=== PATIENT | female | born 1985 | race Caucasian/White ===

== ENCOUNTER → 2016-12-23 | Outpatient (CLI) | payer BC ==
[2016-12-23 13:10] VITALS: BP 148/87; PULSE 99; RESP 16; TEMP 97.8; BMI 69.2
--- NOTE | 2016-12-23 15:54 | P.HPBAR ---
Bariatric H&P - History & Physicial H&P Date: 12/23/16 History & Physicial: Visit/CC: band fill Patient initial contact: Initial weight: 165.108 kg Initial weight in pounds: 364.00 Height: 5 ft 4 in Initial BMI: 62.4 Last weight: Current weight: 182.996 kg Current weight in pounds: 403.00 Current BMI: 69.2 [place] body weight (based on NIH guidelines): 54.431 kg Excess body weight loss: The patient is a 31 year-old F who presents for Bariatric Assessment. The patient presents today for sleeve gastrectomy consultation. She wishes to have her LAP-BAND removed. She wishes to convert to the sleeve gastrectomy. The patient's LAP-BAND was emptied several months ago due to chronic dysphagia and GERD symptoms. The patient LAP-BAND has an inability be adjusted due to the patient having excessive GERD and dysphagia. Past Medical History History of Any Multi-Drug Resistant Organisms: None Reported Smoking Status: Unknown if ever smoked Surgical - Exam Vital Signs Temp Pulse Resp BP 97.8 F 99 16 148/87 12/23/16 13:07 12/23/16 13:07 12/23/16 13:07 12/23/16 13:07 - General well developed, no distress - Eyes PERRL - ENT normal pinna - Neck no masses - Respiratory normal expansion - Cardiovascular Rhythm: regular - Abdomen Abdomen: soft, non tender Bariatric Assessment & Plan Plan: Morbid obesity with BMI 54. Chronic GERD and dysphagia secondary to LAP-BAND. Patient be scheduled for lap band removal. We'll obtain insurance authorization for gastric sleeve surgery. Bariatric Checklist Checklist: Plan: Checklist: EGD: 1. Hiatal hernia: 2. H. Pylori: HgbA1c: Vitamin D: Smoking: Unknown if ever smoked Primary care physician referral: Psychiatry clearance: Cardiology clearance: Sleep study: Diet journal: VTE risk score: VTE risk level: Rehab needs at discharge:
== END | disposition home or self-care (01) ==
LOC: BARWHC3 13:01
PROVIDERS: ATTEND Surgery
DX: Z48.815 Encounter for surgical aftercare following surgery on the digestive system (principal); Z98.84 Bariatric surgery status; E66.01 Morbid (severe) obesity due to excess calories; Z68.43 Body mass index [BMI] 50.0-59.9, adult; K21.9 Gastro-esophageal reflux disease without esophagitis; R13.10 Dysphagia, unspecified
CPT/HCPCS: 99211

== ENCOUNTER 2016-12-25 10:34 | Day surgery (SDC) | payer BC ==
[2016-12-24 14:29] VITALS: BMI 69.1
[2016-12-25 11:10] VITALS: RESP 18; TEMP 97.4
[2016-12-25] MEDS ORDERED: LIDOCAINE 1% 20 ML VIAL (10MG/ML) FOR IV START INTRADERMA ONE (11:30)
[2016-12-25] MEDS ORDERED: LACTATED RINGERS 1,000 ML IV SCH (11:45)
--- NOTE | 2016-12-25 11:52 | P.GSHP ---
History of Present Illness H&P Date: 12/25/16 Chief Complaint: GERD, dysphagia This is a 31-year-old female who presents today for EGD. She has had issues with GERD and dysphagia from her LAP-BAND. She is considering converting to a sleeve gastrectomy. Past Medical History Past Medical History: No Reported History History of Any Multi-Drug Resistant Organisms: None Reported Past Surgical History: Section, Cholecystectomy Additional Past Surgical History / Comment(s): lap band, c-sect x3 Past Anesthesia/Blood Transfusion Reactions: Motion Sickness Past Psychological History: No Psychological Hx Reported Smoking Status: Former smoker Past Alcohol Use History: None Reported Additional Past Alcohol Use History / Comment(s): quit smoking 2010,smoked approx 6-8 yrs <1ppd Past Drug Use History: None Reported - Past Family History Mother Family Medical History: No Reported History Father Family Medical History: Diabetes Mellitus, Hypertension Medications and Allergies Home Medications Medication Instructions Recorded Confirmed Type No Known Home Medications [No 12/24/16 12/24/16 History Known Home Medications] Allergies Allergy/AdvReac Type Severity Reaction Status Date / Time No Known Allergies Allergy Verified 12/24/16 14:22 Surgical - Exam Vital Signs Temp Pulse Resp BP Pulse Ox 97.4 F L 90 18 133/83 97 12/25/16 11:08 12/25/16 11:08 12/25/16 11:08 12/25/16 11:08 12/25/16 11:08 BMI of 70 - General well developed, no distress - Eyes PERRL - ENT normal pinna - Neck no masses - Respiratory normal expansion - Cardiovascular Rhythm: regular - Abdomen Abdomen: soft, non tender Assessment and Plan Plan: RBC, BMI 70. GERD, dysphagia. We'll perform EGD.
[2016-12-25] MEDS ORDERED: LIDOCAINE 1% INJ 10MG/ML (20 ML MDV) ONE (11:53)
[2016-12-25] MEDS ORDERED: PROPOFOL 10 MG/ML 20 ML VIAL IV ONE (11:53)
--- NOTE | 2016-12-25 12:03 | P.OP ---
Date of Procedure: 12/25/16 Preoperative Diagnosis: GERD Postoperative Diagnosis: Antral gastritis Esophagitis Procedure(s) Performed: EGD Anesthesia: MAC Surgeon: Artis Crooks Pathology: other (Antrum, esophagus) Condition: stable Disposition: PACU Description of Procedure: The patient's placed on the endoscopy table in the lateral position. She received IV sedation. The gastroscope some placed oropharynx passed into the esophagus and stomach. Scope was then placed through the pylorus. The first and second portion of the duodenum appeared normal. The scope was then brought back and the antrum this. Mildly inflamed. A biopsies performed. Scope was retroflexed and the remainder some appeared normal. The patient agrees LAP- BAND device this without evidence of inflammation or erosion. The scope was then brought back the distal esophagus in this is mildly inflamed. A biopsies performed. The proximal esophagus appeared normal. Scope was withdrawn for patient.
[2016-12-25 13:04] VITALS: BP 145/92; PULSE 87
== END 2016-12-25 13:10 | disposition home or self-care (01) ==
LOC: ORWHC2ENDO 10:34
PROVIDERS: ATTEND Surgery
DX: K21.0 Gastro-esophageal reflux disease with esophagitis (principal); K29.50 Unspecified chronic gastritis without bleeding; Z98.84 Bariatric surgery status; E66.9 Obesity, unspecified; Z87.891 Personal history of nicotine dependence
CPT/HCPCS: 81025; 88305; 88342; 43239; J2001; J2704

== ENCOUNTER 2017-01-03 06:27 | Day surgery (SDC) | payer BC ==
[2017-01-01 14:27] VITALS: BMI 69.1
[~2017-01-03 06:27] MED LIST: DEXAMETHASONE SOD PHOSPHATE 10 MG/ML 1 ML VIAL IV ONE; HYDROmorphone 1 MG/ML 1 ML SYRINGE IVP PRN; LACTATED RINGERS 1,000 ML IV SCH; MIDAZOLAM 2 MG/2 ML VIAL IV PRN; ONDANSETRON 4 MG/2 ML VIAL IVP ONE; SCOPOLAMINE 1.5MG/72HR PATCH TRANSDERM ONE; ceFAZolin 3 GM in SODIUM CHLORIDE 0.9% 100 ML IVPB ONE
[2017-01-03] MEDS ORDERED: LIDOCAINE 1% 20 ML VIAL (10MG/ML) FOR IV START SQ ONE (06:41)
[2017-01-03] MEDS ORDERED: BUPIVACAIN-EPI 0.25%-1:200,000 30 ML VIAL SQ ONE ×2 (07:24→08:26)
--- NOTE | 2017-01-03 07:52 | P.GSHP ---
History of Present Illness H&P Date: 01/03/17 Chief Complaint: GERD This is a 31-year-old female who's had long-standing problems reflux esophagitis. 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 She presents today for laparoscopic removal of LAP-BAND system. - Constitutional Constitutional: Reports as per HPI Past Medical History Past Medical History: Osteoarthritis (OA) History of Any Multi-Drug Resistant Organisms: None Reported Past Surgical History: Bariatric Surgery, Section, Cholecystectomy Additional Past Surgical History / Comment(s): lap band, c-sect x3 Past Anesthesia/Blood Transfusion Reactions: Motion Sickness Past Psychological History: No Psychological Hx Reported Smoking Status: Former smoker Past Alcohol Use History: None Reported Additional Past Alcohol Use History / Comment(s): quit smoking 2009,smoked approx 6-8 yrs <1ppd Past Drug Use History: None Reported - Past Family History Mother Family Medical History: No Reported History Father Family Medical History: Diabetes Mellitus, Hypertension Medications and Allergies Home Medications Medication Instructions Recorded Confirmed Type No Known Home Medications [No 12/24/16 01/01/17 History Known Home Medications] Allergies Allergy/AdvReac Type Severity Reaction Status Date / Time No Known Allergies Allergy Verified 01/01/17 14:23 Surgical - Exam Vital Signs Temp Pulse Resp BP Pulse Ox 97.9 F 82 16 144/73 97 01/03/17 06:50 01/03/17 06:50 01/03/17 06:50 01/03/17 06:50 01/03/17 06:50 - General well developed, no distress - Eyes PERRL - ENT normal pinna - Neck no masses - Respiratory normal expansion - Cardiovascular Rhythm: regular - Abdomen Abdomen: soft, non tender Assessment and Plan Plan: Morbid obesity with BMI of 69 GERD Prolapse of LAP-BAND. We'll perform laparoscopic removal of LAP-BAND device
[2017-01-03] MEDS ORDERED: HEPARIN SODIUM,PORCINE 5,000 UNIT/ML 1 ML VIAL SQ ONE (07:53)
[2017-01-03] MEDS ORDERED: ceFAZolin 2 GM in SODIUM CHLORIDE 0.9% 100 ML IVPB ONE (07:53)
[2017-01-03] MEDS ORDERED: ROCURONIUM BROMIDE 10 MG/ML 10 ML VIAL IV ONE (08:00)
[2017-01-03] MEDS ORDERED: NEOSTIGMINE 1 MG/ML 10 ML VIAL ONE (08:00)
[2017-01-03] MEDS ORDERED: HYDROmorphone (PF) 1 MG/ML ONE (08:00)
[2017-01-03] MEDS ORDERED: MIDAZOLAM 2 MG/2 ML VIAL ONE (08:00)
[2017-01-03] MEDS ORDERED: SUCCINYLCHOLINE CHLORIDE 100 MG/5 ML SYR IV ONE (08:00)
[2017-01-03] MEDS ORDERED: fentaNYL (PF) 50 MCG/ML 2 ML AMP ONE (08:00)
[2017-01-03] MEDS ORDERED: PROPOFOL 10 MG/ML 20 ML VIAL IV ONE (08:00)
[2017-01-03] MEDS ORDERED: LIDOCAINE 1% INJ 10MG/ML (20 ML MDV) ONE (08:00)
[2017-01-03] MEDS ORDERED: GLYCOPYRROLATE 0.2 MG/ML 2 ML VIAL ONE (08:00)
[2017-01-03] MEDS ORDERED: LACTATED RINGERS 1,000 ML IV ONE (08:33)
--- NOTE | 2017-01-03 09:01 | P.OP ---
Date of Procedure: 01/03/17 Preoperative Diagnosis: GERD Morbid obesity Postoperative Diagnosis: GERD Morbid obesity Procedure(s) Performed: Laparoscopic removal of LAP-BAND system Anesthesia: FLORENTIN Surgeon: Artis Crooks Estimated Blood Loss (ml): 10 Pathology: none sent Condition: stable Disposition: PACU Description of Procedure: Patient's placed the operative table in the supine position. She received general anesthesia. Her abdomen was prepped and draped usual sterile fashion. She was placed in dorsal lithotomy position. The bed was positioned at approximately 30 reverse Trendelenburg. The skin incision sites were anesthetized with 1% local Xylocaine. Using an 11 blade the skin was incised at the LAP-BAND port. And then using blunt and sharp dissection with cautery the LAP-BAND port was dissected free from some taste tissues the PEG tube was then cut and the LAP-BAND port was withdrawn. Next using a 5 mm blade was trocar under direct visitation the perineal cavity was entered at the position of the LAP-BAND port. After adequate insufflation the laparoscope placed back the pleural cavity. Next a 5 mm trocar was placed in the right and left lateral position. And then a 5 mm trocar was placed in the left epigastric position and then the original 5 mm trocar was exchanged for a 15 mm trocar. The adhesions Henry device were lysed using sharp dissection with cautery and then the Henry buckle was exposed. Henry buckle was dissected. The Henry was then undone and then the device was cut next the buckle. LAP-BAND device was then withdrawn from the stomach. There is no evidence of injury stomach. The LAP-BAND device and the cut portion of the device were withdrawn through the 15 mm trocar site. There is no bleeding seen. The trochars withdrawn. The skin was closed interrupted 3-0 Monocryl suture. Dermabond was applied. The patient was sent to recovery in stable condition.
[2017-01-03 09:17] VITALS: TEMP 98
[2017-01-03 09:24] VITALS: RESP 16
[2017-01-03 11:04] VITALS: BP 144/79; PULSE 72
== END 2017-01-03 11:27 | disposition home or self-care (01) ==
LOC: OR 06:27
PROVIDERS: ATTEND Surgery
DX: T85.898A Other specified complication of other internal prosthetic devices, implants and grafts, initial encounter (principal); K21.0 Gastro-esophageal reflux disease with esophagitis; K31.89 Other diseases of stomach and duodenum; E66.01 Morbid (severe) obesity due to excess calories; Z68.44 Body mass index [BMI] 60.0-69.9, adult; Z87.891 Personal history of nicotine dependence
CPT/HCPCS: 81025; 43774; J2250; J1644; J1100; J2710; J0690; J2405; J2001; J3010; J1170; J0330; J2704

== ENCOUNTER → 2017-01-13 | Outpatient (CLI) | payer BC ==
--- NOTE | 2017-01-13 16:22 | P.HPBAR ---
Bariatric H&P - History & Physicial H&P Date: 01/13/17 History & Physicial: Visit/CC: Patient initial contact: Initial weight: 165.108 kg Initial weight in pounds: Height: Initial BMI: Last weight: Current weight: Current weight in pounds: Current BMI: [place] body weight (based on NIH guidelines): Excess body weight loss: The patient is a 31 year-old F who presents for Bariatric Assessment. The patient had her LAP-BAND removed a week ago. Past Medical History Past Medical History: Osteoarthritis (OA) History of Any Multi-Drug Resistant Organisms: None Reported Past Surgical History: Bariatric Surgery, Section, Cholecystectomy Additional Past Surgical History / Comment(s): lap band, c-sect x3 Past Anesthesia/Blood Transfusion Reactions: Motion Sickness Past Psychological History: No Psychological Hx Reported Smoking Status: Former smoker Past Alcohol Use History: None Reported Additional Past Alcohol Use History / Comment(s): quit smoking 2009,smoked approx 6-8 yrs <1ppd Past Drug Use History: None Reported - Past Family History Mother Family Medical History: No Reported History Father Family Medical History: Diabetes Mellitus, Hypertension Surgical - Exam - General well developed, no distress - Eyes PERRL - ENT normal pinna - Neck no masses - Respiratory normal expansion - Cardiovascular Rhythm: regular - Abdomen Abdomen: soft, non tender Bariatric Assessment & Plan Plan: Status post removal LAP-BAND. Patient will be arthritis for sleeve gastrectomy. BMI of 66 Bariatric Checklist Checklist: Plan: Checklist: EGD: 1. Hiatal hernia: 2. H. Pylori: HgbA1c: Vitamin D: Smoking: Former smoker Primary care physician referral: Psychiatry clearance: Cardiology clearance: Sleep study: Diet journal: VTE risk score: VTE risk level: Rehab needs at discharge:
== END | disposition home or self-care (01) ==
LOC: BARWHC3 15:13
PROVIDERS: ATTEND Surgery
DX: Z01.818 Encounter for other preprocedural examination (principal); E66.01 Morbid (severe) obesity due to excess calories; Z68.44 Body mass index [BMI] 60.0-69.9, adult; Z87.891 Personal history of nicotine dependence; Z98.84 Bariatric surgery status
CPT/HCPCS: 99211

== ENCOUNTER → 2017-01-20 | Outpatient (CLI) | payer BC ==
[2017-01-20 14:41] VITALS: BMI 67.3
== END | disposition home or self-care (01) ==
LOC: BARWHC3 09:04
PROVIDERS: ATTEND Surgery
DX: Z71.3 Dietary counseling and surveillance (principal); E66.01 Morbid (severe) obesity due to excess calories; Z68.44 Body mass index [BMI] 60.0-69.9, adult
CPT/HCPCS: 97804

== ENCOUNTER 2017-01-27 07:28 | Inpatient (IN) | payer BC ==
[~2017-01-27 07:28] MED LIST changes: -HYDROmorphone 1 MG/ML 1 ML SYRINGE IVP PRN; -LACTATED RINGERS 1,000 ML IV SCH; -SCOPOLAMINE 1.5MG/72HR PATCH TRANSDERM ONE
[2017-01-27] MEDS ORDERED: LIDOCAINE 1% 20 ML VIAL (10MG/ML) FOR IV START INTRADERMA ONE (08:13)
[2017-01-27] MEDS: LACTATED RINGERS 1,000 ML IV SCH (08:13)
[2017-01-27] MEDS ORDERED: SCOPOLAMINE 1.5MG/72HR PATCH TRANSDERM ONE (08:20)
[2017-01-27] MEDS ORDERED: ACETAMINOPHEN IV (For NPO) 1,000 MG in EMPTY BAG 1 BAG IVPB STA (08:58)
[2017-01-27] MEDS ORDERED: HEPARIN SODIUM,PORCINE 5,000 UNIT/ML 1 ML VIAL SQ STA (08:59)
--- NOTE | 2017-01-27 09:01 | P.GSHP ---
History of Present Illness H&P Date: 01/27/17 Chief Complaint: Morbid obesity This is a 31-year-old female who's had lifetime problems morbid obesity. Her BMI is 66. Patient had a recent removal of her LAP-BAND. She presents today for laparoscopic sleeve gastrectomy. Patient reversed surgery including injury to the stomach liver or spleen. She is also aware of the risk of gastric staple line disruption, bleeding perforation or scarring. - Constitutional Constitutional: Reports as per HPI Past Medical History Past Medical History: GERD/Reflux, Osteoarthritis (OA) History of Any Multi-Drug Resistant Organisms: None Reported Past Surgical History: Bariatric Surgery, Section, Cholecystectomy Additional Past Surgical History / Comment(s): lap band, c-sect x3, lap band removed 2-- Past Anesthesia/Blood Transfusion Reactions: Motion Sickness Past Psychological History: No Psychological Hx Reported Smoking Status: Former smoker Past Alcohol Use History: None Reported Additional Past Alcohol Use History / Comment(s): quit smoking 2009,smoked approx 6-8 yrs <1ppd Past Drug Use History: None Reported - Past Family History Mother Family Medical History: No Reported History Father Family Medical History: Diabetes Mellitus, Hypertension Medications and Allergies Home Medications Medication Instructions Recorded Confirmed Type No Known Home Medications [No 01/22/17 01/27/17 History Known Home Medications] Allergies Allergy/AdvReac Type Severity Reaction Status Date / Time No Known Allergies Allergy Verified 01/27/17 08:00 Surgical - Exam Vital Signs Temp Pulse Resp BP Pulse Ox 98.1 F 87 16 131/71 97 01/27/17 07:58 01/27/17 07:58 01/27/17 07:58 01/27/17 07:58 01/27/17 07:58 - General well developed, no distress - Eyes PERRL - ENT normal pinna - Neck no masses - Respiratory normal expansion - Cardiovascular Rhythm: regular - Abdomen Abdomen: soft, non tender Assessment and Plan Plan: Morbid obesity. We'll perform laparoscopic sleeve gastrectomy.
[2017-01-27] MEDS ORDERED: GLYCOPYRROLATE 0.2 MG/ML 2 ML VIAL ONE (09:32)
[2017-01-27] MEDS ORDERED: SUCCINYLCHOLINE CHLORIDE VIAL 200 MG/10 ML VIAL IV ONE (09:32)
[2017-01-27] MEDS ORDERED: HYDROmorphone (PF) 1 MG/ML ONE (09:32)
[2017-01-27] MEDS ORDERED: fentaNYL (PF) 50 MCG/ML 2 ML AMP ONE (09:32)
[2017-01-27] MEDS ORDERED: MIDAZOLAM 2 MG/2 ML VIAL ONE (09:32)
[2017-01-27] MEDS ORDERED: NEOSTIGMINE 1 MG/ML 10 ML VIAL ONE (09:32)
[2017-01-27] MEDS ORDERED: WATER FOR INJECTION, STERILE 10 ML VIAL IV ONE (09:32)
[2017-01-27] MEDS ORDERED: LIDOCAINE 1% INJ 10MG/ML (20 ML MDV) ONE (09:32)
[2017-01-27] MEDS ORDERED: PROPOFOL 10 MG/ML 20 ML VIAL IV ONE (09:32)
[2017-01-27] MEDS ORDERED: VECURONIUM 10 MG VIAL IV ONE (09:32)
[2017-01-27] MEDS ORDERED: METHYLENE BLUE 10 MG/ML 1 ML VIAL MISCELLANE ONE (10:16)
[2017-01-27] MEDS ORDERED: BUPIVACAIN-EPI 0.25%-1:200,000 30 ML VIAL SQ ONE (10:17)
[2017-01-27] MEDS ORDERED: LACTATED RINGERS 1,000 ML IV ONE ×2 (10:34→12:39)
[2017-01-27] MEDS ORDERED: NALOXONE 0.4 MG/ML 1 ML VIAL IV PRN (11:43)
--- NOTE | 2017-01-27 11:43 | P.OP ---
Date of Procedure: 01/27/17 Preoperative Diagnosis: Morbid obesity, BMI 66 Postoperative Diagnosis: Morbid obesity, BMI 66 Procedure(s) Performed: Laparoscopic sleeve gastrectomy Laparoscopic repair of hiatal hernia Laparoscopic lysis of adhesions Anesthesia: FLORENTIN Surgeon: Artis Crooks Estimated Blood Loss (ml): 20 Pathology: other (Stomach) Condition: stable Disposition: PACU Description of Procedure: The patient's placed the operative table in the supine position. She received general anesthesia. She was then placed in dorsal lithotomy position. Her abdomen was prepped and draped in usual sterile fashion. Using a Veress needle in the left upper quadrant the peritoneal cavity was insufflated. And then a 5 mm blade less trocar under direct visualization was placed the left lateral position. After adequate insufflation the laparoscope placed back into the peritoneal cavity. There were adhesions between the stomach and liver. Next a 5 mm trocar was placed in the right epigastric position and then the left lateral lobe of the liver was retracted. Another 5 mm trochars placed in the left lateral position and then a 15 mm trochars placed in the supraumbilical position and then a fibrillar trocar was placed in the left lateral position. The original 5 mm trocar was exchanged for a 10 mm trocar. The patient's placed in reverse Trendelenburg. The adhesions to the stomach and liver were then lysed with sharp dissection and the Harmonic scissors. The left lateral lobe liver was then further retracted. Using the Harmonic scissors the greater curvature of the stomach was then dissected from the prostate 4 cm from the pylorus to the level of the left diane. There appeared to be evidence of a small hiatal hernia. The diane were dissected in a 360 fashion. And then the hiatal hernia was closed using 2-0 Ethibond suture. Next the 40-[place] bougie dilator was placed oropharynx and passed into the esophagus and into the stomach. And then using the powered echelon stapler the sleeve gastrectomy performed. Sequential firing of the echelon stapler with a combination of black and green cartridges were used to perform the gastrectomy. Seam guard was used for buttress material. At this point the gastric remnant was then brought out through the 15 mm trocar site. And the stomach was insufflated methylene blue normal saline. 250 mL were used to insufflate the sleeve. There is no evidence of any extravasation. This point the abdomen was irrigated. There is no bleeding seen. The fascia of the 15 mm trocar site was closed with 0 Vicryl suture. Skin was closed interrupted 3-0 Monocryl suture. Dermabond was applied. Patient was sent to recovery in stable condition.
[2017-01-27] MEDS: HYDROmorphone 1 MG/ML 1 ML SYRINGE IVP PRN ×4 (12:03→21:14)
[2017-01-27] MEDS: MEPERIDINE 50 MG/ML SYRINGE IVP ONE ×2 (12:26→13:07)
[2017-01-27] MEDS ORDERED: ONDANSETRON 4 MG/2 ML VIAL IVP ONE (12:39)
[2017-01-27] MEDS ORDERED: PROMETHAZINE INJ 25 MG/ML 1 ML VIAL IVPB ONE (13:01)
[2017-01-27] MEDS ORDERED: fentaNYL (PF) 50 MCG/ML 2 ML AMP IV ONE (13:24)
[2017-01-27] MEDS ORDERED: ONDANSETRON 4 MG/2 ML VIAL IVP PRN (13:55)
[2017-01-27] MEDS: KETOROLAC 30 MG/ML 1 ML VIAL IVP SCH ×3 (14:11→23:39)
[2017-01-27 14:24] VITALS: BMI 66.3
[2017-01-27] MEDS: 0.9% NACL WITH KCL 20 MEQ/L 1,000 ML IV SCH ×3 (14:39→23:40)
[2017-01-27] MEDS: ALBUTEROL NEBULIZED 2.5 MG/3 ML INHALATION SCH ×3 (16:35→20:37)
[2017-01-27] MEDS: AMPICILLIN-SULBACTAM 3 GM in SODIUM CHLORIDE 0.9% 100 ML IVPB SCH ×2 (16:44→20:50)
[2017-01-28] MEDS: LACTATED RINGERS 1,000 ML IV SCH (05:34)
[2017-01-28] MEDS: KETOROLAC 30 MG/ML 1 ML VIAL IVP SCH ×4 (05:35→23:20)
[2017-01-28 06:44] LABS: Basophils % (A) 0 %; CH 28.3; CHCM 32.1; Eosinophils # (A) 0.3 k/uL (0-0.7); Eosinophils % (A) 3 %; HCT 41.1 % (34.0-46.0); HDW 2.48; HGB 12.8 gm/dL (11.4-16.0); Luc # (Auto) 0.21; Luc % (Auto) 2; Lymphocytes # (A) 1.3 k/uL (1.0-4.8); Lymphocytes % (A) 13 %; MCH 27.5 pg (25.0-35.0); MCHC 31.1 g/dL (31.0-37.0); MCV 88.5 fL (80.0-100.0); Mean Platelet Volume 6.6; Monocytes # (A) 0.5 k/uL (0-1.0); Monocytes % (A) 4 %; Neutrophils # (A) 8.1 k/uL (1.3-7.7); Neutrophils % (A) 78 %; RBC 4.64 m/uL (3.80-5.40); RDW 13.5 % (11.5-15.5); WBC 10.4 k/uL (3.8-10.6); WBC (Perox) 11.21
[2017-01-28 07:04] LABS: Anion Gap 9 mmol/L; Blood Urea Nitrogen 7 mg/dL (7-17); Calcium 8.2 mg/dL (8.4-10.2); Carbon Dioxide 22 mmol/L (22-30); Chloride 111 mmol/L (98-107); Non-African American GFR(MDRD) >60 (>60 ml/min/1.73 sqM); Phosphorous 2.7 mg/dL (2.5-4.5); Potassium 4.3 mmol/L (3.5-5.1); Sodium 142 mmol/L (137-145)
[2017-01-28] MEDS: ENOXAPARIN 60 MG/0.6 ML SYRINGE SQ SCH ×2 (07:27→20:46)
[2017-01-28] MEDS: ALBUTEROL NEBULIZED 2.5 MG/3 ML INHALATION SCH ×4 (08:52→19:44)
--- NOTE | 2017-01-28 09:10 | FL ---
Single contrast upper GI examination: CLINICAL HISTORY: 31-year-old female history of gastric sleeve yesterday and lap band removal. TECHNIQUE: Limited upper GI exam performed with 40 mL Omnipaque 350. Total fluoroscopy time: 1.05 minutes. FINDINGS: The patient swallowed oral contrast without difficulty or delay. However, the patient complained of t he sensation of contrast gurgling at the mid chest level. Esophageal peristalsis and motility are wit hin normal limits. However, there is progressive pooling of contrast to the mid esophageal level. Gr adual intermittent passage of contrast into the stomach with postsurgical changes of sleeve gastrecto my demonstrated. There is however repeated episodes of gastroesophageal reflux followed by esophageal clearance as there is relative obstruction at the distal stomach as well. After 5 minutes, fluorosco py was resumed and shows passage into proximal small bowel and clearance from the esophagus. There is no extravasation of contrast to suggest leak. No evidence for free air. IMPRESSION: 1. Status post sleeve gastrectomy. 2. Mild relative obstruction along the proximal stomach and moderate relative obstruction at the dist al stomach. This causes recurrent episodes of gastroesophageal reflux. 3. Imaging after 5 minutes shows clearance from the esophagus and passage into the proximal small bow el. 4. No evidence for leak.
[2017-01-28] MEDS ORDERED: SIMETHICONE 40 MG/0.6 ML DROPS 2,000 MG/30 ML BOTTLE PO PRN (11:16)
[2017-01-28 14:00] VITALS: RESP 16
--- NOTE | 2017-01-28 15:19 | P.PN ---
Subjective Principal diagnosis: Morbid obesity Patient is a 31-year-old female with a medical history significant for morbid obesity with recent removal of lap band. Patient presented to the hospital for elective laparoscopic sleeve gastrectomy; left is covered repair of hiatal hernia; and laparoscopic lysis of adhesions. Patient tolerated procedure well. Upper GI exam postoperatively with evidence of mild to moderate obstruction with recurrent episodes of gastroesophageal reflux with no evidence of leak. Upon examination, patient is complaining of chest pressure she believes to be an air bubble. Denies chills, fevers, nausea, vomiting, shortness of breath, or chest pain. Incisional pain controlled. Patient has been up ambulating. Patient is urinating without difficulty. Afebrile. No evidence of leukocytosis. Hemoglobin stable at 12.8. Objective - Vital Signs Vital signs: Vital Signs Temp 97.8 F 01/28/17 13:59 Pulse 86 01/28/17 13:59 Resp 16 01/28/17 13:59 BP 142/90 01/28/17 13:59 Pulse Ox 97 01/28/17 13:59 Intake & Output 01/27/17 01/28/17 01/28/17 18:59 06:59 18:59 Intake Total 2300 1200 Output Total 610 Balance 1690 1200 Weight 175.268 kg Intake: IV 2300 1200 0.9% NaCl with KCl 20 Meq 1200 /l 1,000 ml @ 150 mls/hr IV .[id number] [facility] Rx#: [id number] Output: Urine 600 Estimated Blood Loss 10 Other: # Voids 1 - Exam GENERAL: Pt awake and alert, well-appearing, well-nourished, and in no acute distress. LUNGS: Breath sounds clear to auscultation bilaterally. No wheezes, rales, or rhonchi. HEART: Heart S1, S2, no S3 or S4. Regular rate and rhythm. No murmurs, rubs or gallops. ABDOMEN: Soft, mild incisional tenderness, nondistended, hypoactive bowel sounds. No guarding, no rebound. Surgical laparoscopic incisions dry and intact, no erythema or drainage. - Labs CBC & Chem 7: 01/28/17 06:28 01/28/17 06:25 Labs: Abnormal Lab Results - Last 24 Hours (Table) 01/28/17 01/28/17 Range/Units 06:25 06:28 Neutrophils # 8.1 H (1.3-7.7) k/uL Chloride 111 H (98-107) mmol/L Creatinine 0.49 L (0.52-1.04) mg/dL Calcium 8.2 L (8.4-10.2) mg/dL Assessment and Plan Plan: Impression: 1. Morbid obesity status post laparoscopic sleeve gastrectomy on 01/27/2017. 2. Status post laparoscopic repair of hiatal hernia on 01/27/2017. 3. Status post laparoscopic lysis of adhesions on 01/27/2017. 4. GERD. Plan: 1. Continue to monitor patient. Continue supportive treatment and pain management. Will start patient on a clear bariatric diet. Continue IV hydration. Increase activity. Continue incentive spirometry 10 times now awake. Anticipated discharge in next 24 hours. The above impression and plan have been discussed and directed by Dr. Crooks. Rian LEWIS acting as scribe for Dr. Crooks.
[2017-01-28] MEDS: 0.9% NACL WITH KCL 20 MEQ/L 1,000 ML IV SCH ×2 (17:16→23:18)
[2017-01-29] MEDS: 0.9% NACL WITH KCL 20 MEQ/L 1,000 ML IV SCH ×2 (04:22→06:01)
[2017-01-29] MEDS: LACTATED RINGERS 1,000 ML IV SCH (04:22)
[2017-01-29] MEDS: KETOROLAC 30 MG/ML 1 ML VIAL IVP SCH (06:01)
[2017-01-29] MEDS: ENOXAPARIN 60 MG/0.6 ML SYRINGE SQ SCH (07:43)
[2017-01-29 08:34] VITALS: BP 134/82; TEMP 97.6
[2017-01-29] MEDS: ALBUTEROL NEBULIZED 2.5 MG/3 ML INHALATION SCH ×2 (08:46→11:48)
[2017-01-29 10:24] VITALS: PULSE 86
--- NOTE | 2017-01-29 14:13 | P.DS ---
Providers Date of admission: 01/27/17 07:28 Expected date of discharge: 01/29/17 Attending physician: Artis Crooks Consults: 01/27/17 11:43 Consult Physician Routine Consulting Provider: Alonzo Richardson Consult Reason/Comments: Medical management Do you want consulting provider notified?: Yes Primary care physician: Stated None Hospital Course: Patient is a 31-year-old female with a medical history significant for morbid obesity with recent removal of lap band. Patient presented to the hospital for elective laparoscopic sleeve gastrectomy; laparoscopic repair of hiatal hernia; and laparoscopic lysis of adhesions. Patient tolerated procedure well. Upper GI exam on postop day #1 with evidence of mild to moderate obstruction with recurrent episodes of gastroesophageal reflux with no evidence of leak. Patient had an uneventful postop recovery. No complaints of dysphagia. Tolerated liquid diet. Incisional pain controlled. Urinating without difficulty. No nausea, vomiting, shortness of breath, chest pain. Patient was felt stable for discharge to home with follow-up in the outpatient setting. Discharge diagnoses: 1. Morbid obesity status post laparoscopic sleeve gastrectomy on 01/27/2017. 2. Status post laparoscopic repair of hiatal hernia on 01/27/2017. 3. Status post laparoscopic lysis of adhesions on 01/27/2017. 4. GERD. The above impression and plan have been discussed and directed by Dr. Crooks. Rian LEWIS acting as scribe for Dr. Crooks. Pertinent Studies: Upper GI series Procedures: Laparoscopic sleeve gastrectomy Laparoscopic repair of hiatal hernia Laparoscopic lysis of adhesions Patient Condition at Discharge: Good Plan - Discharge Summary New Discharge Prescriptions: HYDROcodone/APAP 5-325MG [[place] 5-325] 1 tab PO Q4HR PRN #20 tab PRN Reason: Pain Omeprazole [PriLOSEC] 40 mg PO DAILY #30 capsule. Ondansetron Odt [Zofran ODT] 8 mg PO Q8HR #20 tab Sucralfate [Carafate] 1 gm PO ACHS #90 tablet Discharge Medication List HYDROcodone/APAP 5-325MG [[place] 5-325] 1 tab PO Q4HR PRN #20 tab 01/28/17 [Rx] Omeprazole [PriLOSEC] 40 mg PO DAILY #30 capsule. 01/28/17 [Rx] Ondansetron Odt [Zofran ODT] 8 mg PO Q8HR #20 tab 01/28/17 [Rx] Sucralfate [Carafate] 1 gm PO ACHS #90 tablet 01/28/17 [Rx] Follow up Appointment(s)/Referral(s): Alonzo Richardson MD [STAFF PHYSICIAN] - 1 Week Artis Crooks MD [STAFF PHYSICIAN] - 02/10/17 2:00 pm ([facility]) Patient Instructions/Handouts: Laparoscopic Sleeve Gastrectomy (DC) Activity/Diet/Wound Care/Special Instructions: No heavy lifting, pushing, or pulling items greater than 10 pounds. Bariatric diet as previously directed. No caffeinated beverages or straws. Shower daily, no soaking in bath tubs, pools, or hot tubs. No driving while taking pain medication. Notify surgeon with any signs or symptoms of infection, increased pain, or not tolerating diet. Discharge Disposition: HOME SELF-CARE
== END 2017-01-29 13:13 | disposition home or self-care (01) | DRG 621 ==
LOC: 2ORWHC 07:28 → 3SUR 11:58
PROVIDERS: ADMIT Surgery; ATTEND Surgery
PROC: 0BQS4ZZ (ICD-10-PCS; 2017-01-27)
PROC: 0BQR4ZZ (ICD-10-PCS; 2017-01-27)
PROC: 0DB64Z3 Excision of Stomach, Percutaneous Endoscopic Approach, Vertical (ICD-10-PCS; principal; 2017-01-27 09:25)
DX: E66.01 Morbid (severe) obesity due to excess calories (principal); K21.9 Gastro-esophageal reflux disease without esophagitis; K44.9 Diaphragmatic hernia without obstruction or gangrene; Z68.44 Body mass index [BMI] 60.0-69.9, adult; M19.90 Unspecified osteoarthritis, unspecified site; Z87.891 Personal history of nicotine dependence; Z90.49 Acquired absence of other specified parts of digestive tract
CPT/HCPCS: 74240; 80051; 81025; 82310; 82565; 83735; 84100; 84520; 85025; 88307; 88342; 92950; 94640; 94660; 94760

== ENCOUNTER → 2017-02-10 | Outpatient (CLI) | payer BC ==
[~2017-02-10] MED LIST changes: -DEXAMETHASONE SOD PHOSPHATE 10 MG/ML 1 ML VIAL IV ONE; -MIDAZOLAM 2 MG/2 ML VIAL IV PRN; -ONDANSETRON 4 MG/2 ML VIAL IVP ONE; +SODIUM CHLORIDE 0.9% 1,000 ML IV ONE; +SODIUM CHLORIDE 0.9% 1,000 ML with THIAMINE 100 MG IV ONE; +SODIUM CHLORIDE 0.9% 250 ML in EMPTY BAG 1 BAG IV PRN; +SODIUM CHLORIDE 0.9% 500 ML in EMPTY BAG 1 BAG IV PRN; -ceFAZolin 3 GM in SODIUM CHLORIDE 0.9% 100 ML IVPB ONE
[2017-02-10 15:14] VITALS: BMI 62.5
[2017-02-10 16:14] VITALS: BP 136/90; PULSE 97; RESP 18; TEMP 97.8
--- NOTE | 2017-02-10 16:24 | P.HPBAR ---
Bariatric H&P - History & Physicial H&P Date: 02/10/17 History & Physicial: Visit/CC: iv hydration Patient initial contact: Initial weight: 165.108 kg Initial weight in pounds: 364.00 Height: 5 ft 4 in Initial BMI: 62.4 Last weight: Current weight: 165.334 kg Current weight in pounds: 364.00 Current BMI: 62.5 [place] body weight (based on NIH guidelines): 54.431 kg Excess body weight loss: 0.0% The patient is a 31 year-old F who presents for Bariatric Assessment. Patient states she feels tired. She's has had some limited oral intake. She states she may be dehydrated. Past Medical History Past Medical History: GERD/Reflux, Osteoarthritis (OA) History of Any Multi-Drug Resistant Organisms: None Reported Past Surgical History: Bariatric Surgery, Section, Cholecystectomy Additional Past Surgical History / Comment(s): lap band, c-sect x3 Past Anesthesia/Blood Transfusion Reactions: Motion Sickness Past Psychological History: No Psychological Hx Reported Smoking Status: Former smoker Past Alcohol Use History: None Reported Additional Past Alcohol Use History / Comment(s): quit smoking 2009,smoked approx 6-8 yrs <1ppd Past Drug Use History: None Reported - Past Family History Mother Family Medical History: No Reported History Father Family Medical History: Diabetes Mellitus, Hypertension Surgical - Exam Vital Signs Temp Pulse Resp BP 97.9 F 92 16 164/93 02/10/17 15:10 02/10/17 15:10 02/10/17 15:10 02/10/17 15:10 - General well developed, no distress - Eyes PERRL - ENT normal pinna - Neck no masses - Respiratory normal expansion - Cardiovascular Rhythm: regular - Abdomen Abdomen: soft, non tender Bariatric Assessment & Plan Plan: The patient appears has some mild dysphagia causing dehydration. She will receive 2 L of normal saline IV today.. She has a new prescription for Zofran. She'll follow-up in one week. Bariatric Checklist Checklist: Plan: Checklist: EGD: 1. Hiatal hernia: 2. H. Pylori: HgbA1c: Vitamin D: Smoking: Former smoker Primary care physician referral: Psychiatry clearance: Cardiology clearance: Sleep study: Diet journal: VTE risk score: VTE risk level: Rehab needs at discharge:
--- NOTE | 2017-02-18 14:48 | CDI ---
Dr Crooks Please provide information concerning the order given for Thiamine infusion IVPB. This will provide a Medical Necessity to the procedure and why the Thiamine given for the patient during the visit on on 02/10/17. If you have any questions, please let me know. Thank you, CHRISTINA De La Torre you may also contact Romana Galvan at [phone] [facility]
== END | disposition home or self-care (01) ==
LOC: BARWHC3 13:42
PROVIDERS: ATTEND Surgery
DX: E66.01 Morbid (severe) obesity due to excess calories (principal); E86.0 Dehydration; Z68.44 Body mass index [BMI] 60.0-69.9, adult; Z98.84 Bariatric surgery status; Z87.891 Personal history of nicotine dependence; R11.0 Nausea
CPT/HCPCS: 99211; 97803; 96361; 96365; J3411; 96360

== ENCOUNTER → 2017-03-03 | Outpatient (CLI) | payer BC ==
[2017-03-03 14:41] VITALS: BP 138/78; PULSE 74; RESP 14; TEMP 97.6; BMI 62.3
--- NOTE | 2017-03-03 15:59 | P.HPBAR ---
Bariatric H&P - History & Physicial H&P Date: 03/03/17 History & Physicial: Visit/CC: sleeve f/u (Jan 2017) Patient initial contact: Initial weight: 165.108 kg Initial weight in pounds: 364.00 Height: 5 ft 4 in Initial BMI: 62.4 Last weight: Current weight: 164.699 kg Current weight in pounds: 363.10 Current BMI: 62.3 [place] body weight (based on NIH guidelines): 54.431 kg Excess body weight loss: 0.3% The patient is a 31 year-old F who presents for Bariatric Assessment. Patient presents for sleeve gastric follow-up. She has lost 1 pound since her last visit. She's had some minimal GERD symptoms. Past Medical History Past Medical History: GERD/Reflux, Osteoarthritis (OA) History of Any Multi-Drug Resistant Organisms: None Reported Past Surgical History: Bariatric Surgery, Section, Cholecystectomy Additional Past Surgical History / Comment(s): lap band, c-sect x3 Past Anesthesia/Blood Transfusion Reactions: Motion Sickness Past Psychological History: No Psychological Hx Reported Smoking Status: Never smoker Past Alcohol Use History: None Reported Additional Past Alcohol Use History / Comment(s): quit smoking 2009,smoked approx 6-8 yrs <1ppd Past Drug Use History: None Reported - Past Family History Mother Family Medical History: No Reported History Father Family Medical History: Diabetes Mellitus, Hypertension Surgical - Exam Vital Signs Temp Pulse Resp BP 97.6 F 74 14 138/78 03/03/17 14:21 03/03/17 14:21 03/03/17 14:21 03/03/17 14:21 - General well developed, no distress - Eyes PERRL - ENT normal pinna - Neck no masses - Respiratory normal expansion - Cardiovascular Rhythm: regular - Abdomen Abdomen: soft, non tender Bariatric Assessment & Plan Plan: Status post sleeve gastrectomy. I discussed the states he didn't need to make the right food choices. She will see the dietitian today. Her GERD symptoms are minimal and will be observed. She will follow-up in one month. Bariatric Checklist Checklist: Plan: Checklist: EGD: 1. Hiatal hernia: 2. H. Pylori: HgbA1c: Vitamin D: Smoking: Never smoker Primary care physician referral: Sonya RodriguezJensen) Psychiatry clearance: Cardiology clearance: Sleep study: Diet journal: VTE risk score: VTE risk level: Rehab needs at discharge:
== END | disposition home or self-care (01) ==
LOC: BARWHC3 13:28
PROVIDERS: ATTEND Surgery
DX: Z48.815 Encounter for surgical aftercare following surgery on the digestive system (principal); Z71.3 Dietary counseling and surveillance; K21.9 Gastro-esophageal reflux disease without esophagitis; Z98.84 Bariatric surgery status; Z68.44 Body mass index [BMI] 60.0-69.9, adult
CPT/HCPCS: 97803; 99211

== ENCOUNTER → 2017-04-21 | Outpatient (CLI) | payer BC ==
[2017-04-21 14:22] VITALS: BP 148/85; PULSE 80; RESP 16; TEMP 98.2; BMI 57.2
--- NOTE | 2017-04-21 16:10 | P.HPBAR ---
Bariatric H&P - History & Physicial H&P Date: 04/21/17 History & Physicial: Visit/CC: sleeve follow-up Patient initial contact: Initial weight: 165.108 kg Initial weight in pounds: 364.00 Height: 5 ft 4 in Initial BMI: 62.4 Last weight: Current weight: 151.103 kg Current weight in pounds: 333.00 Current BMI: 57.2 [place] body weight (based on NIH guidelines): 54.431 kg Excess body weight loss: 12.7% The patient is a 31 year-old F who presents for Bariatric Assessment. Patient presents for sleeve history of a fall. Denies any significant problems. She has some mild GERD. She's lost a total of 33 pounds. She has some mild GERD and arthritis symptoms. Past Medical History Past Medical History: GERD/Reflux, Osteoarthritis (OA) History of Any Multi-Drug Resistant Organisms: None Reported Past Surgical History: Bariatric Surgery, Section, Cholecystectomy Additional Past Surgical History / Comment(s): lap band, c-sect x3 Past Anesthesia/Blood Transfusion Reactions: Motion Sickness Past Psychological History: No Psychological Hx Reported Smoking Status: Never smoker Past Alcohol Use History: None Reported Additional Past Alcohol Use History / Comment(s): quit smoking 2009,smoked approx 6-8 yrs <1ppd Past Drug Use History: None Reported - Past Family History Mother Family Medical History: No Reported History Father Family Medical History: Diabetes Mellitus, Hypertension Surgical - Exam Vital Signs Temp Pulse Resp BP 98.2 F 80 16 148/85 04/21/17 14:19 04/21/17 14:19 04/21/17 14:19 04/21/17 14:19 - General well developed, no distress - Eyes PERRL - ENT normal pinna - Neck no masses - Respiratory normal expansion - Cardiovascular Rhythm: regular - Abdomen Abdomen: soft, non tender Bariatric Assessment & Plan Plan: Status post sleeve gastrectomy. Patient is doing quite well. Her GERD and arthritis symptoms we'll observe. She'll follow-up in one month. Bariatric Checklist Checklist: Plan: Checklist: EGD: 1. Hiatal hernia: 2. H. Pylori: HgbA1c: Vitamin D: Smoking: Never smoker Primary care physician referral: Sonya RodriguezJensen) Psychiatry clearance: Cardiology clearance: Sleep study: Diet journal: VTE risk score: VTE risk level: Rehab needs at discharge:
== END | disposition home or self-care (01) ==
LOC: BARWHC3 14:04
PROVIDERS: ATTEND Surgery
DX: E66.01 Morbid (severe) obesity due to excess calories (principal); M19.90 Unspecified osteoarthritis, unspecified site; K21.9 Gastro-esophageal reflux disease without esophagitis; Z98.84 Bariatric surgery status
CPT/HCPCS: 97803; 99211

== ENCOUNTER 2020-05-14 12:58 | Emergency (ER) | payer BC ==
[2020-05-14 13:04] VITALS: RESP 16
--- NOTE | 2020-05-14 13:46 | ED ---
Extremity Problem HPI - General Source: patient Mode of arrival: ambulatory Limitations: no limitations <Marilin Manzanares - Last Filed: 05/14/20 14:47> <Kathy Szymanski - Last Filed: 05/22/20 14:09> - General Chief complaint: Extremity Problem,Nontraumatic Stated complaint: Knee pain Time Seen by Provider: 05/14/20 13:09 - History of Present Illness Initial comments: Patient is a 34-year-old female presenting to the emergency Department with complaints of pain on the inside part of her left knee which radiates upward. Patient states she felt fine all day yesterday, laid down for a nap, and when she woke up she noticed this pain. She denies any falls, injuries or trauma. She denies any previous surgeries. She states she thinks she has some mild arthritis but otherwise has never had an issue with this knee. She denies history of DVTs. 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 She said she recently took [place] is [place] abnormal for her. She states the pain somewhat radiates upward towards that her left groin. She denies any recent fever, chills. She has no further complaints at this time (Marilin Manzanares) - Related Data Home Medications Medication Instructions Recorded Confirmed Calcium Carbonate/Vitamin D3 1 each PO DAILY 04/21/17 11/10/17 [Caltrate 600 Plus D3 Tablet] Multivitamins, Thera [Multivitamin 1 tab PO DAILY 04/21/17 11/10/17 (formulary)] Previous Rx's Medication Instructions Recorded Omeprazole [PriLOSEC] 40 mg PO DAILY #30 capsule. 01/28/17 Sucralfate [Carafate] 1 gm PO ACHS #90 tablet 01/28/17 Allergies Allergy/AdvReac Type Severity Reaction Status Date / Time No Known Allergies Allergy Verified 05/14/20 13:04 Review of Systems ROS Other: All systems not noted in ROS Statement are negative. <Marilin Manzanares - Last Filed: 05/14/20 14:47> ROS Other: All systems not noted in ROS Statement are negative. <Kathy Szymanski - Last Filed: 05/22/20 14:09> ROS Statement: Those systems with pertinent positive or pertinent negative responses have been documented in the HPI. Past Medical History Past Medical History: GERD/Reflux, Osteoarthritis (OA) History of Any Multi-Drug Resistant Organisms: None Reported Past Surgical History: Bariatric Surgery, Section, Cholecystectomy Additional Past Surgical History / Comment(s): lap band, c-sect x3 sleeve gastrectomy 01-28-17 Past Anesthesia/Blood Transfusion Reactions: Motion Sickness Past Psychological History: No Psychological Hx Reported Smoking Status: Never smoker Past Alcohol Use History: None Reported Past Drug Use History: None Reported - Past Family History Mother Family Medical History: No Reported History Father Family Medical History: Diabetes Mellitus, Hypertension <Marilin Manzanares - Last Filed: 05/14/20 14:47> General Exam Limitations: no limitations <Marilin Manzanares - Last Filed: 05/14/20 14:47> - General Exam Comments Initial Comments: GENERAL: Well-appearing, well-nourished and in no acute distress. HEAD: Atraumatic, normocephalic. EYES: Pupils equal round and reactive to light, extraocular movements intact, sclera anicteric, conjunctiva are normal. ENT: TMs normal, nares patent, oropharynx clear without exudates. Moist mucous membranes. NECK: Normal range of motion, supple without lymphadenopathy or JVD. LUNGS: Breath sounds clear to auscultation bilaterally and equal. No wheezes rales or rhonchi. HEART: Regular rate and rhythm without murmurs, rubs or gallops. ABDOMEN: Soft, nontender, normoactive bowel sounds. No guarding, no rebound. No masses appreciated. : Deferred EXTREMITIES: Mild tenderness to palpation of the medial aspect of the left knee, no deformity, swelling or overlying erythema. She is neurovascular intact. She has full range of motion of her left knee without increasing pain. No clubbing or cyanosis. NEUROLOGICAL: Normal speech, normal gait. PSYCH: Normal mood, normal affect. SKIN: Warm, Dry, normal turgor, no rashes or lesions noted. (Marilin Manzanares) Course Vital Signs 05/14/20 05/14/20 13:03 14:55 Temperature 98.6 F 97.2 F L Pulse Rate 85 74 Respiratory 16 16 Rate Blood Pressure 134/84 140/90 O2 Sat by Pulse 100 100 Oximetry Medical Decision Making <Marilin Manzanares - Last Filed: 05/14/20 14:47> <Kathy Szymanski - Last Filed: 05/22/20 14:09> - Medical Decision Making Patient is a 34-year-old female presenting with pain of her left knee, medial aspect. No injuries or trauma. No history of DVTs. She has full range of motion. X-rays reveal moderate to severe osteoarthritic changes of the left knee. Ultrasound reveals no sign of acute DVT. I discussed these findings with the patient. I recommended trial of NSAIDs as well as heat and/or ice to the area. She is in agreement with this plan of care. She is stable for discharge. She will follow up with her PCP if symptoms persist. He is discussed with Dr. Szymanski. (Marilin Manzanares) I was available for consultation in the emergency department. The history and physical exam were done by the midlevel provider. I was consulted for this patients care. I reviewed the case with the midlevel provider and based on their presentation of the patient, I agree with the assessment, medical decision making and plan of care as documented. Chart was dictated using [employer] dictation software. Attempts were made to correct any dictation errors however some typographical errors may persist. Patient was seen during a national state of emergency due to the Covid-19 pandemic. (Kathy Szymanski) Disposition Is patient prescribed a controlled substance at d/c from ED?: No <Marilin Manzanares - Last Filed: 05/14/20 14:47> <Kathy Szymanski - Last Filed: 05/22/20 14:09> Clinical Impression: Left knee pain, Arthritis of left knee Disposition: HOME SELF-CARE Condition: Stable Instructions (If sedation given, give patient instructions): Osteoarthritis (ED) Additional Instructions: Please return to the Emergency Department if symptoms worsen or any other concerns. Trial of NSAIDs for discomfort as well as heat and/or ice to the area. Follow-up with PCP. Referrals: Lionel Davey MD [Primary Care Provider] - 1-2 days
--- NOTE | 2020-05-14 13:59 | XR ---
EXAMINATION TYPE: XR knee complete LT , 3 VIEWS DATE OF EXAM ORDERED: 05/14/2020 HISTORY: pain. COMPARISON: None. FINDINGS: There is both medial and lateral joint space loss. There is remodeling change in all 3 com partments. There is fullness in the suprapatellar region. I could not exclude a knee joint effusion. No acute fracture or dislocation is seen. IMPRESSION: MODERATELY SEVERE CHANGES OF OSTEOARTHRITIS WITH A SMALL, CONCOMITANT EFFUSION.
--- NOTE | 2020-05-14 14:27 | US ---
EXAMINATION TYPE: US venous doppler duplex LE LT DATE OF EXAM: 05/14/2020 2:19 PM COMPARISON: NONE CLINICAL HISTORY: pain. Left knee pain SIDE PERFORMED: Left TECHNIQUE: The lower extremity deep venous system is examined utilizing real time linear array sonog opal with graded compression, doppler sonography and color-flow sonography. VESSELS IMAGED: External Iliac Vein (EIV) Common Femoral Vein Deep Femoral Vein Greater Saphenous Vein * Femoral Vein Popliteal Vein Small Saphenous Vein * Proximal Calf Veins (* superficial vessels) Left Leg: Negative for DVT Fluid collection visualized medial left knee measuring 1.4 x 0.6 x 1.7 cm IMPRESSION: No sign of deep vein thrombosis in the left leg. There is small popliteal cyst noted.
[2020-05-14 14:56] VITALS: BP 140/90; PULSE 74; TEMP 97.2
== END 2020-05-14 14:50 | disposition home or self-care (01) ==
LOC: EC 12:58
DX: M17.12 Unilateral primary osteoarthritis, left knee (principal)
CPT/HCPCS: 99284

== ENCOUNTER 2023-02-24 05:36 | Day surgery (SDC) | payer BC ==
[~2023-02-24 05:36] MED LIST changes: +ACETAMINOPHEN TAB 500 MG TAB PO PRN; +GABAPENTIN 300 MG CAP PO PRN; +MELOXICAM 7.5 MG TAB PO PRN; -SODIUM CHLORIDE 0.9% 1,000 ML IV ONE; -SODIUM CHLORIDE 0.9% 1,000 ML with THIAMINE 100 MG IV ONE; -SODIUM CHLORIDE 0.9% 250 ML in EMPTY BAG 1 BAG IV PRN; -SODIUM CHLORIDE 0.9% 500 ML in EMPTY BAG 1 BAG IV PRN; +TRANEXAMIC ACID IN NACL,ISO-OS 1,000 MG in SALINE 1 100ML.BAG IVPB PRN; +ceFAZolin 3 GM in SODIUM CHLORIDE 0.9% 100 ML IVPB PRN
[2023-02-24] MEDS ORDERED: LACTATED RINGERS 1,000 ML IV SCH ×2 (05:51)
[2023-02-24] MEDS ORDERED: HYDROmorphone 0.5 MG/0.5 ML SYRINGE IVP PRN ×3 (05:51→09:08)
[2023-02-24] MEDS ORDERED: LIDOCAINE 1% (10MG/ML) FOR IV START INTRADERMA PRN (05:51)
[2023-02-24] MEDS ORDERED: ONDANSETRON 4 MG/2 ML VIAL IVP ONE ×2 (05:51→10:21)
[2023-02-24] MEDS ORDERED: SCOPOLAMINE 1 MG/72 HR PATCH TRANSDERM ONE (06:34)
[2023-02-24] MEDS ORDERED: DEXAMETHASONE SOD PHOSPHATE 4 MG/ML 1 ML VIAL IVP ONE (06:34)
[2023-02-24] MEDS ORDERED: MIDAZOLAM 2 MG/2 ML VIAL IVP ONE (06:35)
[2023-02-24] MEDS ORDERED: SUCCINYLCHOLINE CHLORIDE 200 MG/10 ML VIAL IV ONE (06:55)
[2023-02-24] MEDS ORDERED: KETAMINE 10 MG/ML 20 ML VIAL ONE (06:55)
[2023-02-24] MEDS ORDERED: GLYCOPYRROLATE 0.2 MG/ML 2 ML VIAL ONE (06:55)
[2023-02-24] MEDS ORDERED: HYDROmorphone (PF) 1 MG/ML ONE (06:55)
[2023-02-24] MEDS ORDERED: fentaNYL (PF) 50 MCG/ML 2 ML AMP ONE (06:55)
[2023-02-24] MEDS ORDERED: ROPIVACAINE 5 MG/ML 30 ML VIAL ONE (06:55)
[2023-02-24] MEDS ORDERED: NEOSTIGMINE 1 MG/ML 10 ML VIAL ONE (06:55)
[2023-02-24] MEDS ORDERED: LIDOCAINE 2% INJ 20 MG/ML (2 ML VIAL) ONE (06:55)
[2023-02-24] MEDS ORDERED: SODIUM CHLORIDE 0.9% (PF) 10 ML VIAL ONE (06:55)
[2023-02-24] MEDS ORDERED: TRANEXAMIC ACID IN NACL,ISO-OS 1,000 MG/100 ML BAG ONE (06:55)
[2023-02-24] MEDS ORDERED: ROCURONIUM 10 MG/ML (5 ML VIAL) IV ONE (06:55)
[2023-02-24] MEDS ORDERED: MIDAZOLAM 2 MG/2 ML VIAL ONE (06:55)
[2023-02-24] MEDS ORDERED: PROPOFOL 10 MG/ML 20 ML VIAL IV ONE (06:55)
--- NOTE | 2023-02-24 07:28 | P.ANPRN ---
Procedure Note - Anesthesia - Nerve Block Performed Left Adductor Canal Infusion Time Out Performed: Yes (0635) Date of Procedure: 02/24/23 Procedure Start Time: 06:40 Procedure Stop Time: 06:55 Location of Patient: PreOp Indication: Acute Post-Operative Pain, Requested by Surgeon Sedation Type: Sedate with meaningful contact maintained Preparation: Sterile Prep, Sterile Dressing Position: Supine Catheter: Indwelling Needle Types: On-Q Needle Gauge: 18 Ultrasound used to visualize needle placement: Yes Ultrasound used to observe medication spread: Yes Injectate: 0.5% Ropivacaine (see comment for volume) Blood Aspirated: No Pain Paresthesia on Injection Noted: No Resistance on Injection: Normal Image Stored and Saved: Yes Events: Uneventful and Well Tolerated (20 mL of block solution containing 10 ML of 0.5% ropivacaine preservative-free mixed with 10 ML of preservative-free normal saline)
--- NOTE | 2023-02-24 07:29 | P.ANPRN ---
Procedure Note - Anesthesia - Nerve Block Performed Left iPack Single Time Out Performed: Yes (0635) Date of Procedure: 02/24/23 Procedure Start Time: 06:40 Procedure Stop Time: 06:55 Location of Patient: PreOp Indication: Acute Post-Operative Pain, Requested by Surgeon Sedation Type: Sedate with meaningful contact maintained Preparation: Sterile Prep, Sterile Dressing Position: Supine Catheter: None Needle Types: [place]ajunk Needle Gauge: 21 Ultrasound used to visualize needle placement: Yes Ultrasound used to observe medication spread: Yes Injectate: 0.5% Ropivacaine (see comment for volume) Blood Aspirated: No Pain Paresthesia on Injection Noted: No Resistance on Injection: Normal Image Stored and Saved: Yes Events: Uneventful and Well Tolerated (20 mL of block solution containing 10 ML of 0.5% ropivacaine preservative-free mixed with 10 ML of preservative-free normal saline)
[2023-02-24] MEDS ORDERED: LACTATED RINGERS 1,000 ML IV ONE ×3 (08:10→10:00)
--- NOTE | 2023-02-24 08:33 | P.OP ---
Date of Procedure: 02/24/23 Preoperative Diagnosis: 1. Severe osteoarthritis of the left knee with a valgus deformity 2. Morbid obesity Postoperative Diagnosis: 1. Severe osteoarthritis the left knee with a valgus deformity 2. Morbid obesity Procedure(s) Performed: Left total knee arthroplasty Implants: Srinivasan & Nephew Journey II CR Oxinium Bi-cruciate stabilized femoral component size 5, left Srinivasan & Nephew Journey nonporous tibial baseplate size 4, left Srinivasan & Nephew Journey II, constrained articular insert, size 9 mm, Size 3-4, left Srinivasan & Nephew Journey Suzan II resurfacing patellar component, oval, 29 mm All components were cemented using Palacos R bone cement The articulation is Oxinium on polyethylene Anesthesia: FLORENTIN Surgeon: Rob Womack Malariologist #1: Jodi Naik Estimated Blood Loss (ml): 50 Pathology: other (Bone and cartilage) Condition: stable Disposition: PACU Indications for Procedure: The patient's knee is end-stage, and conservative management has failed. The operation of knee replacement has been discussed at length in the office, as well as potential risks and complications. These are inclusive of, but not limited to: Infection, bleeding, scarring, discomfort, stiffness, blood vessel and nerve damage, need for further surgery, failure to relieve symptoms, persistence, recurrence, or worsening of problems, loosening, dislocation, wear, blood clot, pulmonary embolism, , gait dysfunction, stiffness, and other risks as discussed in the office. Patient elects to proceed and the consent form has been signed. Operative Findings: The operative findings are consistent with severe osteoarthritis left knee with a valgus deformity Description of Procedure: Patient was seen in the preoperative area and the consent was reviewed and the operative site was marked with a skin marker. The patient verified the procedure and the operative site. An adductor canal pain catheter and an IPACK block were placed by anesthesia in the preoperative area. The patient was then brought to the operating room and positioned on the operating room table in the supine position. Preoperative antibiotics and a gram of transexamic acid were given intravenously. A spinal anesthetic was administered by the anesthesia department. Care was taken to make sure that all pressure points were adequately padded. A tourniquet was placed on the upper thigh and the lower extremity was prepped with ChloraPrep and draped in usual sterile fashion. A universal timeout was then performed which confirmed the patient's name, surgical site, ALLERGIES, and consent. The lower extremity was then exsanguinated and tourniquet was inflated to 250 mmHg. A standard anterior midline approach to the knee was performed. The skin and subcutaneous tissue were sharply dissected down to the patellar tendon. A medial parapatellar arthrotomy was then performed. The knee was then extended, the patellar was everted, and the knee was flexed. The infra-patellar fat pad was removed in order to enhance exposure. The anterior horns of both menisci were excised, and a release was performed to the posterior medial aspect of the knee. On gross visual inspection, there was complete loss of articular cartilage in the medial and patellofemoral joint spaces. There was also significant cartilage damage in the lateral compartment. There were multiple periarticular osteophytes globally about the knee which were then removed with a Ronguer. The femoral canal was then opened with the 9.5 mm intramedullary drill. The 8 mm intramedullary chino was then inserted into the femoral canal with the distal femoral cutting guide set for 5 of valgus. The distal femoral cutting block was then pinned in place. The intramedullary chino was then removed, and the distal femur was then cut. The cutting block was then removed and the cut was checked for symmetry. The resected bone was then measured to confirm the appropriate distal femoral resection. Next, the sizing guide was then placed and set for 3 external rotation based off of the epicondylar axis and Dominguez's line. Pins were then placed and the drill holes, and the femur was sized with the sizing stylus. The pins were then removed, and the sizing guide was then removed. The spikes of the appropriate size femoral block was then placed into the predrilled holes, and malleted into place. Two 45 mm pins were then placed into the fixation holes on the cutting block. An larry wing was then used to ensure there would be no notching with the anterior cut. The anterior condyles were cut without notching. The anterior chord cut was then performed, followed by the posterior cut, posterior chamfer cut, and the anterior chamfer cut. The collateral ligaments were protected during the entire process. The cutting block was then removed. Any remaining bone and osteophytes were removed from the femur with a Ronguer. Attention was then directed to the tibia. The remaining ACL was removed with a Ronguer, and the tibia was then gently subluxed forward with a large bent knee retractor. Any remaining menisci were excised. The posterior lateral corner was cauterized in order to coagulate the lateral geniculate artery. The extra medullary tibial cutting guide was then placed, set for the appropriate rotation, slope, and depth of resection. The proximal tibia cutting guide was then pinned in place. Proximal tibia was then cut and sized. A curved osteotome was then used to remove any posterior osteophytes from the distal femur. The femoral trial was placed. The box cutting guide was then placed in the bone for the box was reamed and removed. The box trial was then placed. The tibial trial was placed with the appropriate-sized insert. The knee was able to fully extend and flex to 130 and was stable throughout all range of motion. The knee was then extended and the patella was everted. Patella was then measured, and then using an osteotomy guide, the patella was cut at the appropriate level. The patellar component was sized. The patellar drill guide was placed and the patella was drilled. The patella trial was then placed. The knee was then taken through range of motion with the patella trial and the patella tracked normally using the no thumbs technique. The patella trial was then removed. The knee was then flexed and lug holes were drilled through the femoral trial and the femoral trial was then removed. The tibial was then re-exposed, and the tibial broach guide was then pinned in place after it was set for the appropriate rotation to allow for the most coverage without overhang. The tibia was then reamed and broached. The femoral canal was plugged with autologous bone. The cut surfaces of bone were then irrigated with pulsatile lavage. The knee was also irrigated with Irrisept solution. The components were then opened, the cement was mixed. Cement was placed on the backside of the femoral, tibial, and patellar components. Cement was then applied to the tibial surface and pressurized into the surface using finger pressurization technique. The tibial component was then applied and excess cement was removed after it was impacted securely noted to be flush with the cut surface. In similar fashion, the cement was applied to the cut femoral surface, pressurized and using finger pressurization the component was impacted in place. Excess cement was removed. The polyethylene spacer was then implanted and locked into position. Patellar component was then applied in a similar technique and the patellar clamp was used to hold patella in place while the cement hardened. The knee was held in full extension while the cement hardened. Once the cement had fully hardened, the knee was reinspected. Any other cement extrusion was removed the final range of motion testing showed range of motion from 0-115 with excellent stability, both medial and laterally and appropriate alignment of the leg. Patella tracked normally[default value] After the cemented hardened, the tourniquet was released and hemostasis was obtained. A second gram of transexamic acid was given intravenously. The knee was again irrigated. The knee was again taken through range of motion and found to be stable throughout all range of motion of 0-115, and the patella tracked normally. The fascia was then closed with 0 Vicryl followed by #2 strata fix suture. The subcutaneous tissue was closed with 3-0 Vicryl and 3-0 strata fix. Exofin glue was used for the skin and placed with the knee in flexion. After the glue had dried, and Optafoam silver impregnated dressing was applied. A lightly compressive dressing was applied using web roll and Rory wrap. Patient was then transferred to the stretcher and taken to recovery room in stable c ondition. Sponge and needle counts were correct. The assistant produce manager EULA Friedman was required due the complexity surgery and the need for a skilled surgical instrument mechanic. She assisted in positioning, draping, retraction, and closure of the wound.
[2023-02-24] MEDS ORDERED: HYDROmorphone 1 MG/ML 1 ML SYRINGE IVP PRN (09:08)
[2023-02-24] MEDS ORDERED: NALOXONE 0.4 MG/ML 1 ML VIAL IV PRN (09:08)
[2023-02-24] MEDS ORDERED: NA PHOS,M-B/NA PHOS,DI-BA 133 ML ENEMA RECTAL PRN (09:08)
[2023-02-24] MEDS ORDERED: MAGNESIUM HYDROXIDE 2,400 MG/10 ML CUP PO PRN (09:08)
[2023-02-24] MEDS ORDERED: bisacodyL 10 MG SUPP RECTAL PRN (09:08)
[2023-02-24] MEDS ORDERED: ONDANSETRON 4 MG/2 ML VIAL IVP PRN (09:08)
[2023-02-24] MEDS ORDERED: HYDROcodone/APAP 7.5-325MG 1 EACH TAB PO PRN ×2 (09:10)
[2023-02-24 09:11] VITALS: TEMP 96.8
[2023-02-24] MEDS ORDERED: HYDROmorphone 0.5 MG/0.5 ML SYRINGE IVP ONE ×3 (09:14→09:57)
[2023-02-24] MEDS ORDERED: SODIUM CHLORIDE 0.9% 1,000 ML IV SCH (09:15)
[2023-02-24] MEDS ORDERED: ROPIVACAINE 1,100 MG, SODIUM CHLORIDE 0.9% 500 ML 330 ML, EMPTY PAIN BALL 1 EACH MISCELLANE PRN ×2 (09:43)
--- NOTE | 2023-02-24 09:43 | XR ---
EXAMINATION TYPE: XR knee limited LT DATE OF EXAM: 02/24/2023 COMPARISON: NONE TECHNIQUE: Two views submitted HISTORY: Post op FINDINGS: There is a prosthetic knee in near anatomic alignment. There is soft tissue edema and emphysema. IMPRESSION: 1. Postoperative change. Appears in near-anatomic alignment
[2023-02-24] MEDS ORDERED: ceFAZolin 3 GM in SODIUM CHLORIDE 0.9% 100 ML IVPB SCH (11:00)
[2023-02-24] MEDS ORDERED: HYDROcodone/APAP 7.5-325MG 1 EACH TAB PO ONE (11:33)
[2023-02-24 13:04] VITALS: BP 133/91; PULSE 82; RESP 16
[2023-02-24] MEDS ORDERED: ASPIRIN 325 MG TAB PO SCH (21:00)
[2023-02-24] MEDS ORDERED: SENNOSIDES-DOCUSATE SODIUM 1 EACH TAB PO SCH (21:00)
== END 2023-02-24 13:05 | disposition home health service (06) ==
LOC: OR 05:36
PROVIDERS: ATTEND Orthopaedic Surgery
DX: M17.12 Unilateral primary osteoarthritis, left knee (principal); M21.062 Valgus deformity, not elsewhere classified, left knee; M25.762 Osteophyte, left knee; E66.01 Morbid (severe) obesity due to excess calories; G89.18 Other acute postprocedural pain; M21.061 Valgus deformity, not elsewhere classified, right knee; F17.210 Nicotine dependence, cigarettes, uncomplicated; Z86.59 Personal history of other mental and behavioral disorders; Z90.89 Acquired absence of other organs; Z98.51 Tubal ligation status; Z98.891 History of uterine scar from previous surgery; Z82.49 Family history of ischemic heart disease and other diseases of the circulatory system; Z83.3 Family history of diabetes mellitus; Z68.43 Body mass index [BMI] 50.0-59.9, adult
CPT/HCPCS: 27447; 97530; 97161; 81025; 64999; 64448; 76942; 88300; 73560; C1776; C1751; J2250; J0330; J1100; J2710; J0690; J2405; J3010; J1170 ×2; J2795; J2704; J2001

== ENCOUNTER → 2023-03-26 | Outpatient (CLI) | payer BC ==
[2023-03-26 15:24] LABS: INR 0.9 (<1.2); Partial Thromboplastin Time 23.4 sec (22.0-30.0); Prothrombin Time 9.7 sec (9.0-12.0)
[2023-03-26 23:29] LABS: Appearance,Urine Turbid (Clear); Bilirubin,Urine Negative (Negative); Blood,Urine Negative (Negative); Color,Urine Yellow (Yellow); Ketones,Urine Trace mg/dL (Negative); Nitrite,Urine Negative (Negative); Specific Gravity,Urine 1.032 (1.001-1.030); Urobilinogen,Urine 0.2 (0.2,1.0)
[2023-03-26 23:32] LABS: Bacteria,Urine Trace /HPF (None Seen)
[2023-03-27 01:16] LABS: HGB 10.8 g/dL (12.0-15.0); MCH 25.1 pg (27.0-32.0); MCHC 29.2 g/dL (32.0-37.0); MCV 85.8 fL (80.0-97.0); NRBC Per 100 WBC 0 /100 WBCS (0.0-0.0); Platelet Count 358 X 10*3/uL (140-440); RBC 4.31 X 10*6/uL (4.10-5.20); RDW 15.5 % (11.5-14.5); WBC 8.52 X 10*3/uL (4.50-10.00)
[2023-03-27 03:05] LABS: ALT 14 U/L (8-44); AST 24 U/L (13-35); African American GFR (CKD) 126.5 (60.0-200.0); Albumin 4.6 g/dL (3.8-4.9); Albumin/Globulin Ratio 1.64 (1.60-3.17); Alkaline Phosphatase 126 U/L (41-126); BUN/Creat Ratio 18.43 Ratio (12.00-20.00); Blood Urea Nitrogen 12.9 mg/dL (9.0-27.0); Calcium 9.3 mg/dL (8.7-10.3); Carbon Dioxide 24.3 mmol/L (20.0-27.5); Chloride 107 mmol/L (96-109); Globulin 2.8 g/dL (1.6-3.3); Glucose 66 mg/dL (70-110); Non-African American GFR(CKD) 109.1 (60.0-200.0); Potassium 3.9 mmol/L (3.5-5.5); Sodium 143 mmol/L (135-145); Total Bilirubin <0.15 mg/dL (0.30-1.20); Total Protein 7.4 g/dL (6.2-8.2)
== END | disposition home or self-care (01) ==
LOC: LABPAT 13:42
PROVIDERS: ATTEND Orthopaedic Surgery
DX: Z01.812 Encounter for preprocedural laboratory examination (principal); M17.11 Unilateral primary osteoarthritis, right knee
CPT/HCPCS: 80053; 81001; 85027; 85610; 85730; 87070

== ENCOUNTER 2023-04-22 12:31 | Day surgery (SDC) | payer BC ==
[~2023-04-22 12:31] MED LIST changes: +HYDROcodone/APAP 7.5-325MG 1 EACH TAB PO PRN; +HYDROmorphone 0.5 MG/0.5 ML SYRINGE IVP PRN; +NALOXONE 0.4 MG/ML 1 ML VIAL IV PRN; -ceFAZolin 3 GM in SODIUM CHLORIDE 0.9% 100 ML IVPB PRN
[2023-04-22] MEDS ORDERED: LACTATED RINGERS 1,000 ML IV ONE ×2 (13:00→18:06)
[2023-04-22] MEDS: ONDANSETRON 4 MG/2 ML VIAL IVP PRN ×2 (13:01→16:48)
[2023-04-22 13:21] LABS: Glucose,Whole Blood 81 mg/dL (70-110)
[2023-04-22] MEDS ORDERED: SCOPOLAMINE 1 MG/72 HR PATCH TRANSDERM ONE (13:34)
[2023-04-22] MEDS ORDERED: fentaNYL (PF) 50 MCG/ML 2 ML AMP IVP ONE ×2 (13:38→13:41)
[2023-04-22] MEDS ORDERED: MIDAZOLAM 2 MG/2 ML VIAL IVP ONE ×2 (13:38→13:40)
[2023-04-22] MEDS ORDERED: PROPOFOL 10 MG/ML 20 ML VIAL IV ONE (14:18)
[2023-04-22] MEDS ORDERED: ROCURONIUM 10 MG/ML (5 ML VIAL) IV ONE (14:18)
[2023-04-22] MEDS ORDERED: HYDROmorphone (PF) 1 MG/ML ONE (14:18)
[2023-04-22] MEDS ORDERED: SUCCINYLCHOLINE CHLORIDE 200 MG/10 ML VIAL IV ONE (14:18)
[2023-04-22] MEDS ORDERED: TRANEXAMIC ACID IN NACL,ISO-OS 1,000 MG/100 ML BAG ONE (14:18)
[2023-04-22] MEDS ORDERED: LIDOCAINE 2% INJ 20 MG/ML (2 ML VIAL) ONE (14:18)
[2023-04-22] MEDS ORDERED: MIDAZOLAM 2 MG/2 ML VIAL ONE (14:18)
[2023-04-22] MEDS ORDERED: KETAMINE 10 MG/ML 20 ML VIAL ONE (14:18)
[2023-04-22] MEDS ORDERED: fentaNYL (PF) 50 MCG/ML 2 ML AMP ONE (14:18)
[2023-04-22] MEDS ORDERED: ROPIVACAINE 5 MG/ML 30 ML VIAL ONE (14:18)
[2023-04-22] MEDS ORDERED: SODIUM CHLORIDE 0.9% (PF) 10 ML VIAL ONE (14:18)
[2023-04-22] MEDS ORDERED: ceFAZolin 1,000 MG in SODIUM CHLORIDE 0.9% 1,000 ML IRRIGATION ONE (14:27)
--- NOTE | 2023-04-22 15:52 | P.OP ---
Date of Procedure: 04/22/23 Preoperative Diagnosis: Severe osteoarthritis right knee Postoperative Diagnosis: Severe osteoarthritis right knee Procedure(s) Performed: Right total knee arthroplasty Implants: Srinivasan & Nephew Journey II Oxinium Bi-cruciate stabalized femoral component size 5, right Srinivasan & Nephew Journey nonporous tibial baseplate size 4, right Srinivasan & Nephew Journey II, constrained articular insert, size 13 mm, Size 3-4, right Srinivas[employer]hew Journey Suzan II resurfacing patellar component, oval, 29 mm All components were cemented using Palacos R bone cement The articulation is Oxinium on polyethylene Anesthesia: FLORENTIN Surgeon: Rob Womack Industrial Waste Treatment Technician #1: Jodi Naik Estimated Blood Loss (ml): 50 Pathology: none sent Condition: stable Disposition: PACU Indications for Procedure: The patient's knee is end-stage, and conservative management has failed. The operation of knee replacement has been discussed at length in the office, as well as potential risks and complications. These are inclusive of, but not limi manav to: Infection, bleeding, scarring, discomfort, stiffness, blood vessel and nerve damage, need for further surgery, failure to relieve symptoms, persistence, recurrence, or worsening of problems, loosening, dislocation, wear, blood clot, pulmonary embolism, , gait dysfunction, stiffness, and other risks as discussed in the office. Patient elects to proceed and the consent form has been signed. Operative Findings: The operative findings are consistent with severe osteoarthritis of the right knee Description of Procedure: The patient was seen in the preoperative area, the consent was reviewed and the operative site was marked with a skin marker. The patient verified the procedure and the operative site. An adductor canal pain catheter and an iPACK block were placed by anesthesia in the preoperative area. The patient was then brought to the operating room and positioned on the operating room table in the supine position. Preoperative antibiotics and a gram of tranexamic acid were given intravenously. A general anesthetic was administered by the anesthesia department. Care was taken to make sure that all pressure points were adequately padded. A tourniquet was placed on the upper thigh and the lower extremity was prepped with ChloraPrep and draped in usual sterile fashion. A universal time-out was then performed which confirmed the patient's name, surgical site, ALLERGIES, and consent. The lower extremity was then exsanguinated and tourniquet was inflated to 250 mmHg. A standard anterior midline approach to the knee was performed. The skin and subcutaneous tissue were sharply dissected down to the patellar tendon. A medial parapatellar arthrotomy was then performed. The knee was then extended, the patellar was everted, and the knee was flexed. The infra-patellar fat pad was removed in order to enhance exposure. The anterior horns of both menisci were excised, and a release was performed to the posterior medial aspect of the knee. On gross visual inspection, there was complete loss of articular cartilage in the medial and patellofemoral joint spaces. There was also significant cartilage damage in the lateral compartment. There were multiple periarticular osteophytes globally about the knee which were then removed with a Ronguer. The femoral canal was then opened with the 9.5 mm intramedullary drill. The 8 mm intramedullary chino was then inserted into the femoral canal with the distal femoral cutting guide set for 5 of valgus. The distal femoral cutting block was then pinned in place. The intramedullary chino was then removed, and the distal femur was then cut. The cutting block was then removed and the cut was checked for symmetry. The resected bone was then measured to confirm the appropriate distal femoral resection. Next, the sizing guide was then placed and set for 3 external rotation based off of the epicondylar axis and Hart's line. Pins were then placed and the drill holes, and the femur was sized with the sizing stylus. The pins were then removed, and the sizing guide was then removed. The spikes of the appropriate size femoral block was th en placed into the predrilled holes, and malleted into place. Two 45 mm pins were then placed into the fixation holes on the cutting block. An larry wing was then used to ensure there would be no notching with the anterior cut. The anterior condyles were cut without notching. The anterior chord cut was then performed, followed by the posterior cut, posterior chamfer cut, and the anterior chamfer cut. The collateral ligaments were protected during the entire process. The cutting block was then removed. Any remaining bone and osteophytes were removed from the femur with a Ronguer. Attention was then directed to the tibia. The remaining ACL was removed with a Ronguer, and the tibia was then gently subluxed forward with a large bent knee retractor. Any remaining menisci were excised. The posterior lateral corner was cauterized in order to coagulate the lateral geniculate artery. The extra medullary tibial cutting guide was then placed, set for the appropriate rotation, slope, and depth of resection. The proximal tibia cutting guide was then pinned in place. Proximal tibia was then cut and sized. A curved osteotome was then used to remove any posterior osteophytes from the distal femur. The femoral trial was placed. The box drill guide was placed in the intracondylar femoral bone was removed for the femoral box.. The box trial was then placed. The tibial trial was placed with the appropriate-sized insert. The knee was able to fully extend and flex to 130 and was stable throughout all range of motion. The knee was then extended and the patella was everted. Patella was then measured, and then using an osteotomy guide, the patella was cut at the appropriate level. The patellar component was sized. The patellar drill guide was placed and the patella was drilled. The patella trial was then placed. The knee was then taken through range of motion with the patella trial and the patella tracked normally using the no thumbs technique. The patella trial was then removed. The knee was then flexed and lug holes were drilled through the femoral trial and the femoral trial was then removed. The tibial was then re-exposed, and the tibial broach guide was then pinned in place after it was set for the appropriate rotation to allow for the most coverage without overhang. The tibia was then reamed and broached. The femoral canal was plugged with autologous bone. The cut surfaces of bone were then irrigated with pulsatile lavage. The knee was also irrigated with Irrisept solution. The components were then opened, the cement was mixed. Cement was placed on the backside of the femoral, tibial, and patellar components. Cement was then applied to the tibial surface and pressurized into the surface using finger pressurization technique. The tibial component was then applied and excess cement was removed after it was impacted securely noted to be flush with the cut surface. In similar fashion, the cement was applied to the cut femoral surface, pressurized and using finger pressurization the component was impacted in place. Excess cement was removed. The polyethylene spacer was then implanted and locked into position. Patellar component was then applied in a similar technique and the patellar clamp was used to hold patella in place while the cement hardened. The knee was held in full extension while the cement hardened. Once the cement had fully hardened, the knee was reinspected. Any other cement extrusion was removed the final range of motion testing showed range of motion from 0-130 with excellent stability, both medial and laterally and appropriate alignment of the leg. Patella tracked normally. After the cemented hardened, the tourniquet was released and hemostasis was obtained. A second gram of transexamic acid was given intravenously. The knee was again irrigated. The knee was again taken through range of motion and found to be stable throughout all range of motion of 0-130, and the patella tracked n ormally. The fascia was then closed with 0 Vicryl followed by #2 strata fix suture. The subcutaneous tissue was closed with 3-0 Vicryl and 3-0 strata fix. Exofin glue was used for the skin and placed with the knee in flexion. After the glue had dried, and Optafoam silver impregnated dressing was applied. A lightly compressive dressing was applied using web roll and Rory wrap. Patient was then transferred to the stretcher and taken to recovery room in stable condition. Sponge and needle counts were correct. The refinery operator assistant EULA Friedman was required due the complexity surgery and the need for a skilled surgical territory manager. She assisted in positioning, draping, retraction, and closure of the wound.
[2023-04-22] MEDS: HYDROmorphone 0.5 MG/0.5 ML SYRINGE IVP ONE ×3 (16:27→17:01)
[2023-04-22] MEDS ORDERED: ROPIVACAINE 1,100 MG, SODIUM CHLORIDE 0.9% 500 ML 330 ML, EMPTY PAIN BALL 1 EACH MISCELLANE PRN ×2 (16:28)
[2023-04-22 16:43] VITALS: RESP 16
[2023-04-22] MEDS ORDERED: droPERidol 5 MG/2 ML VIAL IVP ONE (16:51)
[2023-04-22] MEDS: SODIUM CHLORIDE 0.9% 1,000 ML IV SCH ×2 (17:11→19:52)
--- NOTE | 2023-04-22 17:45 | XR ---
EXAMINATION TYPE: XR knee limited RT DATE OF EXAM: 04/22/2023 COMPARISON: None HISTORY: Postop right knee TECHNIQUE: 3 view right knee FINDINGS: Tibial femoral components have been placed. No acute fracture or dislocation is evident. No joint effusion is evident. Postsurgical soft tissue changes are evident. IMPRESSION: 1. No acute fracture post knee replacement.
[2023-04-22] MEDS ORDERED: ceFAZolin 3 GM in SODIUM CHLORIDE 0.9% 100 ML IVPB SCH (18:30)
[2023-04-22] MEDS: HYDROcodone/APAP 7.5-325MG 1 EACH TAB PO PRN (18:32)
--- NOTE | 2023-04-22 19:28 | P.ANPRN ---
Procedure Note - Anesthesia - Nerve Block Performed Right Adductor Canal Time Out Performed: Yes (13:36) Date of Procedure: 04/22/23 Procedure Start Time: :36 Procedure Stop Time: :45 Location of Patient: PreOp Indication: Acute Post-Operative Pain, Requested by Surgeon (Dr Womack) Sedation Type: Sedate with meaningful contact maintained Preparation: Sterile Prep, Sterile Dressing Position: Supine Catheter: Indwelling Needle Types: Pajunk Needle Gauge: 21 Ultrasound used to visualize needle placement: Yes Ultrasound used to observe medication spread: Yes Injectate: 0.5% Ropivacaine (see comment for volume) (20cc) Blood Aspirated: No Pain Paresthesia on Injection Noted: No Resistance on Injection: Normal Image Stored and Saved: Yes Events: Uneventful and Well Tolerated
--- NOTE | 2023-04-22 19:29 | P.ANPRN ---
Procedure Note - Anesthesia - Nerve Block Performed Right iPack Time Out Performed: Yes Date of Procedure: 04/22/23 Procedure Start Time: 13:47 Procedure Stop Time: 13:54 Location of Patient: PreOp Indication: Acute Post-Operative Pain, Requested by Surgeon (Dr Womack) Sedation Type: Sedate with meaningful contact maintained Preparation: Sterile Prep Position: Supine Catheter: None Needle Types: Pajunk Needle Gauge: 21 Ultrasound used to visualize needle placement: Yes Ultrasound used to observe medication spread: Yes Injectate: 0.5% Ropivacaine (see comment for volume) (15cc +5cc PF Normal saline) Blood Aspirated: No Pain Paresthesia on Injection Noted: No Resistance on Injection: Normal Image Stored and Saved: Yes Events: Uneventful and Well Tolerated
[2023-04-22] MEDS: HYDROmorphone 1 MG/ML 1 ML SYRINGE IVP PRN (19:51)
[2023-04-23] MEDS: HYDROcodone/APAP 7.5-325MG 1 EACH TAB PO PRN ×2 (00:30→06:13)
[2023-04-23] MEDS: HYDROmorphone 1 MG/ML 1 ML SYRINGE IVP PRN (03:19)
--- NOTE | 2023-04-23 06:11 | P.PN ---
Progress Note - Text The patient is status post right adductor canal catheter placement. The catheter was placed for postoperative pain control, status post total right knee arthroplasty. Ropivacaine 0.2% is infusing at 8 mLs per hour. The patient has no complaints of right lower extremity numbness or weakness. Patient's VAS score is 2-3 -10. Assessment: Patient's adductor canal catheter is in place and working appropriately. Plan: continue infusion and adjust it as needed.
[2023-04-23 07:25] VITALS: BP 146/84; PULSE 81; TEMP 98.9
--- NOTE | 2023-04-23 07:50 | P.DS ---
Providers Expected date of discharge: 04/23/23 Attending physician: Rob Womack Primary care physician: Lionel Davey - Discharge Diagnosis(es) (1) Primary localized osteoarthritis of right knee Current Visit: Yes Status: Acute (2) Status post total right knee replacement Current Visit: Yes Status: Acute Hospital Course: This is a 37-year-old female who was last seen with complaint of continued right knee pain. The patient has a known history of degenerative arthritis of the right knee and presents to discuss surgical options. After discussion and consideration the patient elects to proceed with total right knee arthroplasty. The patient is seen preoperatively by her primary care physician and cleared for surgery. The patient is admitted to [facility] for total right knee arthroplasty. The procedure is performed without complication or sequelae. Patient is doing well postoperatively. Vital signs are stable at discharge. Labs are stable at discharge. the patient is ambulating well with walker with minimal assistance. The patient is discharged to home on postop day #1 pending medical clearance. Please see orders and refer to the [facility] rec for accurate list of medications. Patient Condition at Discharge: Good Plan - Discharge Summary Discharge Rx Participant: Yes New Discharge Prescriptions: New Aspirin 325 mg PO BID #60 tab Sennosides [Senokot] 2 tab PO DAILY PRN #60 tablet PRN Reason: Constipation Ondansetron Odt [Zofran Odt] 1 tab PO Q8HR PRN #10 tab PRN Reason: Nausea HYDROcodone/APAP 7.5-325MG [Burke 7.5-325] 1 - 2 tab PO Q6H PRN #32 tab PRN Reason: Pain No Action Ondansetron Odt [Zofran Odt] 1 tab PO Q8HR PRN #10 tab PRN Reason: Nausea HYDROcodone/APAP 7.5-325MG [Burke 7.5-325] 1 - 2 tab PO Q6H PRN #32 tab PRN Reason: Pain Discharge Medication List HYDROcodone/APAP 7.5-325MG [Burke 7.5-325] 1 - 2 tab PO Q6H PRN #32 tab 02/24/23 [Rx] Ondansetron Odt [Zofran Odt] 1 tab PO Q8HR PRN #10 tab 02/24/23 [Rx] Aspirin 325 mg PO BID #60 tab 04/22/23 [Rx] HYDROcodone/APAP 7.5-325MG [Burke 7.5-325] 1 - 2 tab PO Q6H PRN #32 tab 04/22/23 [Rx] Ondansetron Odt [Zofran Odt] 1 tab PO Q8HR PRN #10 tab 04/22/23 [Rx] Sennosides [Senokot] 2 tab PO DAILY PRN #60 tablet 04/22/23 [Rx] Follow up Appointment(s)/Referral(s): Rob Womack DO [Doctor of Osteopathic Medicine] - 05/05/23 1:20 pm Ambulatory/Diagnostic Orders: Continuous Passive Motion (CPM) Machine [DME.AMB1] Time Frame: 3 Weeks, Facility: [facility], Location: [facility] Ambulatory Physical Therapy Order [THER.AMB] Location: None Selected Patient Instructions/Handouts: *Surgery [facility] - (Anesthesia) Discharge Instructions Outpatient Surgery, *Surgery [facility] - Scopalamine Patch Instructions, How to Use an Incentive Spirometer (DC) Activity/Diet/Wound Care/Special Instructions: Weightbearing as tolerated with a walker. CPM 5-6h daily as tolerated. Leave dressing intact. Dressing may be removed by home care nurse or by patient in 7 days. Then change dressing twice daily until follow up. May shower with initial dressing intact and after removal. If dressing become saturated, please remove. Recommend use of compression stockings daily until follow up to help prevent swelling and blood clots. May remove at night before sleeping. Please take aspirin 325mg twice daily for 30 days to prevent blood clots. Please follow up with [facility] and call with any questions or concerns, . Discharge Disposition: HOME WITH HOME HEALTH SERVICES
[2023-04-23] MEDS: ONDANSETRON 4 MG/2 ML VIAL IVP PRN (08:05)
[2023-04-23 08:53] LABS: Basophils # (A) 0.05 X 10*3/uL (0.00-0.10); Basophils % (A) 0.6 %; Eosinophils # (A) 0.03 X 10*3/uL (0.04-0.35); Eosinophils % (A) 0.4 %; HCT 33.8 % (37.2-46.3); HGB 9.9 g/dL (12.0-15.0); Immature Grans, Automated 0.5 %; Lymphocytes # (A) 1.38 X 10*3/uL (0.90-5.00); Lymphocytes % (A) 16.4 %; MCHC 29.3 g/dL (32.0-37.0); Mean Platelet Volume 9.7 fL (9.5-12.2); Monocytes # (A) 0.85 X 10*3/uL (0.20-1.00); Monocytes % (A) 10.1 %; NRBC Per 100 WBC 0 /100 WBCS (0.0-0.0); Neutrophils # (A) 6.09 X 10*3/uL (1.80-7.70); Platelet Count 339 X 10*3/uL (140-440); RBC 4.12 X 10*6/uL (4.10-5.20); RDW 15.3 % (11.5-14.5); WBC 8.44 X 10*3/uL (4.50-10.00)
== END 2023-04-23 10:42 | disposition home health service (06) ==
LOC: OR 12:31 → 4SSUR 16:16 → OR 04-23 10:42
PROVIDERS: ATTEND Orthopaedic Surgery
DX: M17.11 Unilateral primary osteoarthritis, right knee (principal); M25.761 Osteophyte, right knee; G89.18 Other acute postprocedural pain; Z98.891 History of uterine scar from previous surgery; Z90.49 Acquired absence of other specified parts of digestive tract; Z98.51 Tubal ligation status; Z82.49 Family history of ischemic heart disease and other diseases of the circulatory system; Z83.3 Family history of diabetes mellitus; Z79.899 Other long term (current) drug therapy
CPT/HCPCS: 97162; 81025; 64999; 64448; 85025; 73560; 27447; C1713; C1776; C1751; J2250; J0330; J0690 ×2; J2405 ×2; J3010; J1170 ×3; J2795; J2704; J1790; J2001

== ENCOUNTER → 2023-06-09 | Outpatient (CLI) | payer BC ==
[2023-06-09 14:28] VITALS: BP 131/83; PULSE 78; TEMP 98.2; BMI 47.3
--- NOTE | 2023-06-09 15:25 | FL ---
EXAMINATION TYPE: FL barium swallow DATE OF EXAM: 06/09/2023 CLINICAL HISTORY: Status post gastric sleeve 2017. R10.13 EPI PAIN,K21.9 GERD Contrast: 4OZ EZ PAQUE 39 SEC FL TIME. 37.52 DAP The patient ingested contrast without difficulty or delay. Noted are postsurgical changes of gastric sleeve. There is no evidence for leak or obstruction. Contrast is noted within the duodenum. IMPRESSION: Gastric sleeve without evidence for obstruction or leak at this point in time. No hiatal hernia.
== END ==
LOC: BARWHC3 13:52
PROVIDERS: ATTEND Surgery
DX: E66.01 Morbid (severe) obesity due to excess calories (principal); Z98.84 Bariatric surgery status; K21.9 Gastro-esophageal reflux disease without esophagitis; Z68.42 Body mass index [BMI] 45.0-49.9, adult
CPT/HCPCS: 74220; 99211